=== PATIENT | female | born 1985 | race Caucasian/White ===

== ENCOUNTER → 2018-03-30 | Outpatient (CLI) | payer MEDICAID ==
--- NOTE | 2018-03-30 14:07 | RADIOLOGY REPORT (SQ) ---
EXAM DESCRIPTION: CT ABD/PELVIS WITH IV ORAL COMPLETED DATE/TIME: 03/30/2018 1:43 pm REASON FOR STUDY: R10.9 UNSPECIFIED ABDOMINAL PAIN R10.9 UNSPECIFIED ABDOMINAL PAIN COMPARISON: None. TECHNIQUE: CT scan of the abdomen and pelvis performed using helical scanning technique with dynamic intravenous contrast injection. Patient drank oral contrast. Images reviewed with lung, soft tissue , and bone windows. Reconstructed coronal and sagittal MPR images reviewed. Delayed images for evalua tion of the urinary system also acquired. All images stored on PACS. All CT scanners at this facility use dose modulation, iterative reconstruction, and/or weight based d osing when appropriate to reduce radiation dose to as low as reasonably achievable (ALARA). [facility]: Dose Right [facility]: CareDose [facility]: Dose Right [facility]: Teradose 4D [facility]: Parenting[employer]former CONTRAST TYPE AND DOSE: contrast/concentration: Isovue 350.00 mg/ml; Total Contrast Delivered: 42.0 ml; Total Saline Delivered: 65.0 ml RENAL FUNCTION: Creatinine 0.7 RADIATION DOSE: CT Rad equipment meets quality standard of care and radiation dose reduction techniq ues were employed. CTDIvol: 2.5 - 3.0 mGy. DLP: 220 mGy-cm.. LIMITATIONS: None. FINDINGS: LOWER CHEST: No significant findings. No nodules or infiltrates. Yanez rods over the thoracic and lumbar spine LIVER: Normal size. No masses. No dilated ducts. SPLEEN: Normal size. No focal lesions. PANCREAS: No masses. No significant calcifications. No adjacent inflammation or peripancreatic fluid collections. Pancreatic duct not dilated. GALLBLADDER: Surgically absent ADRENAL GLANDS: No significant masses or asymmetry. RIGHT KIDNEY AND URETER: No solid masses. No significant calcifications. No hydronephrosis or hyd roureter. LEFT KIDNEY AND URETER: No solid masses. No significant calcifications. No hydronephrosis or hydr oureter. AORTA AND VESSELS: No aneurysm. No dissection. Renal arteries, SMA, celiac without stenosis. RETROPERITONEUM: No retroperitoneal adenopathy, hemorrhage or masses. BOWEL AND PERITONEAL CAVITY: Patient drank oral contrast. No bowel obstruction. No masses or inflam matory changes. No free fluid or peritoneal masses. APPENDIX: Normal. PELVIS: No mass. No free fluid. Normal bladder. Normal size female pelvic organs ABDOMINAL WALL: No masses. No hernias. BONES: Bilateral L5 spondylolysis. Yanez rods over the thoracic and lumbar spine. OTHER: No other significant finding. IMPRESSION: NO SIGNIFICANT OR ACUTE FINDING IN THE ABDOMEN OR PELVIS ON CT SCAN WITH IV CONTRAST. TECHNICAL DOCUMENTATION: JOB ID: [id number] Quality ID # [id number]: Final reports with documentation of one or more dose reduction techniques (e.g., Au tomated exposure control, adjustment of the mA and/or kV according to patient size, use of iterative reconstruction technique) 2010 [employer]- All Rights Reserved Reading location - IP/workstation name: [email or web address]
== END ==
LOC: RAD 14:37
PROVIDERS: ATTEND Physician Assistant
DX: R10.9 Unspecified abdominal pain (principal)
CPT/HCPCS: 74177; 82565

== ENCOUNTER 2018-08-23 12:54 | Emergency (ER) | payer MEDICAID ==
[2018-08-23] MEDS ORDERED: HYDROCODONE/ACETAMINOPHEN 5-325 MG TABLET PO ONE (13:48)
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
--- NOTE | 2018-08-23 14:24 | RADIOLOGY REPORT (SQ) ---
EXAM DESCRIPTION: CHEST 2 VIEWS COMPLETED DATE/TIME: 08/23/2018 2:10 pm REASON FOR STUDY: hx of osteng imperfecta with chest/back pain COMPARISON: None. EXAM PARAMETERS: NUMBER OF VIEWS: two views TECHNIQUE: Digital Frontal and Lateral radiographic views of the chest acquired. RADIATION DOSE: NA LIMITATIONS: none FINDINGS: LUNGS AND PLEURA: No opacities, masses or pneumothorax. No pleural effusion. MEDIASTINUM AND HILAR STRUCTURES: No masses or contour abnormalities. HEART AND VASCULAR STRUCTURES: Heart normal size. No evidence for failure. BONES: No acute findings. Scoliosis. Pectus excavatum. HARDWARE: Spinal hardware. Clips in the upper abdomen. OTHER: No other significant finding. IMPRESSION: NO ACUTE RADIOGRAPHIC FINDING IN THE CHEST. TECHNICAL DOCUMENTATION: JOB ID: [id number] [employer]- All Rights Reserved Reading location - IP/workstation name: [email or web address]
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
[2018-08-23 15:14] VITALS: BP 132/75
== END 2018-08-23 15:15 | disposition home or self-care (01) ==
LOC: ER 12:54
DX: J06.9 Acute upper respiratory infection, unspecified (principal); M54.6 Pain in thoracic spine; R07.81 Pleurodynia; M54.9 Dorsalgia, unspecified; R06.02 Shortness of breath; R07.9 Chest pain, unspecified; R05 Cough; R09.81 Nasal congestion; F17.210 Nicotine dependence, cigarettes, uncomplicated
CPT/HCPCS: 71046; 99283; 99406

== ENCOUNTER 2019-03-05 01:02 | Emergency (ER) | payer MEDICAID ==
[2019-03-05] MEDS ORDERED: METHOCARBAMOL 500 MG TABLET PO ONE (02:33)
[2019-03-05] MEDS ORDERED: HYDROCODONE/ACETAMINOPHEN 5-325 MG TABLET PO ONE (02:33)
[2019-03-05] MEDS ORDERED: IBUPROFEN SUSP 100 MG/5 ML ORAL SYRINGE PO ONE (02:34)
--- NOTE | 2019-03-05 02:39 | ER Document Report ---
ED General - General Chief Complaint: Back Injury Stated Complaint: BACK INJURY Time Seen by Provider: 03/05/19 02:15 Primary Care Provider: ANALISA LOZA MD [Primary Care Provider] - Follow up as needed Mode of Arrival: Ambulatory Information source: Patient TRAVEL OUTSIDE OF THE [place] IN LAST 30 DAYS: No - HPI Notes: Patient is a 33-year-old female presents to the emergency department with history of osteogenesis imperfecta and history of spinal nikolay surgery for scoliosis at age 14 and again at age 16, presents with report that she was drinking wine and then was dancing then slipped and fell on her gluteal region and presents with significant pain to the sacral region as well as some pain through the rest of her spine. She denies any numbness, paresthesia, incontinence, abdominal pain, chest pain, significant head injury, headache, neck pain. No other musculoskeletal complaint or injury. - Related Data Allergies/Adverse Reactions: Sulfa (Sulfonamide Antibiotics) Allergy (Verified 03/05/19 01:04) Past Medical History - General Information source: Patient - Social History Smoking Status: Never Smoker Frequency of alcohol use: Occasional Drug Abuse: None Lives with: Friend Family History: None Renal/ Medical History: Denies: Hx Peritoneal Dialysis Musculoskeletal Medical History: Reports Hx Arthritis, Reports Hx Musculoskeletal Deformity - Scoliosis, pectus excavatum Psychiatric Medical History: Reports: Hx Anxiety, Hx Depression Past Surgical History: Reports: Hx Orthopedic Surgery - Immunizations Immunizations up to date: Yes Hx Diphtheria, Pertussis, Tetanus Vaccination: Yes Review of Systems - Review of Systems -: Yes All other systems reviewed and negative Physical Exam - Vital signs Vitals: Temp Pulse Resp BP Pulse Ox 98.3 F 103 H 20 134/93 H 100 03/05/19 01:09 03/05/19 01:09 03/05/19 01:09 03/05/19 01:09 03/05/19 01:09 - Notes Notes: PHYSICAL EXAMINATION: GENERAL: Well-appearing, well-nourished, in tears in pain. HEAD: Atraumatic, normocephalic. EYES: Pupils equal round and reactive to light, extraocular movements intact, conjunctiva are normal. ENT: Nares patent, oropharynx clear without exudates. Moist mucous membranes. NECK: Normal range of motion, supple without lymphadenopathy LUNGS: Breath sounds clear to auscultation bilaterally and equal. No wheezes rales or rhonchi. HEART: Regular rate and rhythm without murmurs ABDOMEN: Soft, nontender, nondistended abdomen. No guarding, no rebound. No masses appreciated. Female : deferred Musculoskeletal: no pitting or edema. No cyanosis. Mild diffuse tenderness through the thoracic and lumbar spine region along the surgical scar from previous spinal surgery, although the main pain is along L5 region through the sacrum right slightly greater than left. No gross bony deformity or contusion noted. NEUROLOGICAL: Cranial nerves grossly intact. Normal speech. Normal sensory, motor exams. No saddle anesthesia. PSYCH: Normal mood, normal affect. SKIN: Warm, Dry, normal turgor, no rashes or lesions noted. Course - Re-evaluation Re-evalutation: 03/05/19 02:45 Patient was given medication for pain with ibuprofen, Robaxin and [place]. 03/05/19 06:42 X-rays raised question of a worsening anterolisthesis L5 on S1, so a CT scan was ordered which showed this was chronic and unchanged. The patient shows no evidence for cauda equina syndrome or spinal cord contusion clinically. The patient was able to ambulate after medications felt better. No suggestion for acute fracture or neurovascular compromise. - Vital Signs Vital signs: Temp Pulse Resp BP Pulse Ox 98.3 F 103 H 20 134/93 H 100 03/05/19 01:09 03/05/19 01:09 03/05/19 01:09 03/05/19 01:09 03/05/19 01:09 Discharge - Discharge Clinical Impression: Accidental fall Qualifiers: Encounter type: initial encounter Qualified Code(s): W19.XXXA - Unspecified fall, initial encounter Back strain Qualifiers: Encounter type: initial encounter Qualified Code(s): S39.012A - Strain of muscle, fascia and tendon of lower back, initial encounter Condition: Stable Disposition: HOME, SELF-CARE Instructions: Low Back Pain ([facility]) Prescriptions: Hydrocodone/Acetaminophen [[place] 5-325 mg Tablet] 1 tab PO Q4HP PRN #20 tablet PRN Reason: Methocarbamol [Robaxin 500 mg Tablet] 500 mg PO Q8HP PRN #20 tablet PRN Reason: Forms: Return to Work Referrals: ANALISA LOZA MD [Primary Care Provider] - Follow up as needed
--- NOTE | 2019-03-05 03:43 | RADIOLOGY REPORT (SQ) ---
EXAM DESCRIPTION: XR THORACIC SPINE 2 VIEWS, XR LUMBAR SPINE ANTEROPOSTERIOR, LATERAL, AND OBLIQUES COMPLETED DATE/TME: 03/05/2019 02:28 (accession [id number]), 03/05/2019 02:29 (accession [id number]) CLINICAL HISTORY: 33 years Female, fall with pain, hx rods COMPARISON: CT abdomen pelvis March 30, 2018. Findings: Grade 1, estimated 0.8 cm (0.3-cm, prior CT 03/30/18) L5 anterolisthesis with spondylolysis bilaterally consistent with CT from March 30, 2018. Apparent interval worsening. Mild posterior L5 vertebral height loss, chronic. Moderate scoliotic curvature, moderate dextroconvexity of the lower thoracic spine, moderate levo convexity of the lumbar spine, extensive nikolay fixation posteriorly of the thoracolumbar spine extends from the T3 level to the L2-L3 level. No gross evidence of metal fracture or loosening. Right upper abdominal clips. IMPRESSION: Grade 1, 0.8 cm L5 anterolisthesis with mild interval worsening. Extensive hardware fixation of the thoracolumbar spine. Chronic grade 1 L5 anterolisthesis. .
--- NOTE | 2019-03-05 03:43 | RADIOLOGY REPORT (SQ) ---
EXAM DESCRIPTION: XR THORACIC SPINE 2 VIEWS, XR LUMBAR SPINE ANTEROPOSTERIOR, LATERAL, AND OBLIQUES COMPLETED DATE/TME: 03/05/2019 02:28 (accession [id number]), 03/05/2019 02:29 (accession [id number]) CLINICAL HISTORY: 33 years Female, fall with pain, hx rods COMPARISON: CT abdomen pelvis March 30, 2018. Findings: Grade 1, estimated 0.8 cm (0.3-cm, prior CT 03/30/18) L5 anterolisthesis with spondylolysis bilaterally consistent with CT from March 30, 2018. Apparent interval worsening. Mild posterior L5 vertebral height loss, chronic. Moderate scoliotic curvature, moderate dextroconvexity of the lower thoracic spine, moderate levo convexity of the lumbar spine, extensive nikolay fixation posteriorly of the thoracolumbar spine extends from the T3 level to the L2-L3 level. No gross evidence of metal fracture or loosening. Right upper abdominal clips. IMPRESSION: Grade 1, 0.8 cm L5 anterolisthesis with mild interval worsening. Extensive hardware fixation of the thoracolumbar spine. Chronic grade 1 L5 anterolisthesis. .
--- NOTE | 2019-03-05 03:52 | RADIOLOGY REPORT (SQ) ---
EXAM DESCRIPTION: XR PELVIS 1-2 VIEWS COMPLETED DATE/TME: 03/05/2019 02:30 CLINICAL HISTORY: 33 years, Female, s/p fall with pain, hx osteogenesis imperfecta COMPARISON: CT dated 03/30/2018 NUMBER OF VIEWS: One TECHNIQUE: AP view of the pelvis LIMITATIONS: None. FINDINGS: No definite acute fracture or dislocation. The hip and sacroiliac joints appear intact. There is levoscoliosis of the lower lumbar spine with spinal hardware partially visualized. IMPRESSION: No definite acute fracture or dislocation copyright 2010 [employer]- All Rights Reserved
--- NOTE | 2019-03-05 06:01 | RADIOLOGY REPORT (SQ) ---
EXAM DESCRIPTION: CT LUMBAR SPINE WITHOUT IV CONTRAST COMPLETED DATE/TME: 03/05/2019 04:14 CLINICAL HISTORY: 33 years, Female, fall with pain over L5 / sacrum COMPARISON: None. TECHNIQUE: Axial CT images of the lumbar spine were obtained without contrast. Sagittal and coronal reformats were performed. DLP 365 Images stored on PACS. All CT scanners at this facility use dose modulation, iterative reconstruction, and/or weight based dosing when appropriate to reduce radiation dose to as low as reasonably achievable (ALARA). [facility]: Dose Right [facility]: CareDose [facility]: Dose Right [facility]: Teradose 4D [facility]: [employer] LIMITATIONS: None. FINDINGS: There is levoscoliosis of the lumbar spine with the apex centered at L1. There is no acute fracture or subluxation. The vertebral heights are maintained. There are changes of posterior fusion which are partially visualized which extends from L2 to the upper thoracic spine. There are chronic bilateral L5 pars defects with mild grade 1 anterolisthesis of L5 over S1. The paravertebral soft tissues are normal. IMPRESSION: No acute fracture or subluxation. TECHNICAL DOCUMENTATION: Quality ID # [id number]: Final reports with documentation of one or more dose reduction techniques (e.g., Automated exposure control, adjustment of the mA and/or kV according to patient size, use of iterative reconstruction technique) copyright 2011 [employer]- All Rights Reserved
--- NOTE | 2019-03-05 06:05 | RADIOLOGY REPORT (SQ) ---
EXAM DESCRIPTION: CT PELVIS WITHOUT IV CONTRAST COMPLETED DATE/TME: 03/05/2019 04:14 CLINICAL HISTORY: 33 years, Female, fall with pain over L5 / sacrum COMPARISON: None. TECHNIQUE: Axial CT images of the pelvis were obtained without contrast. Sagittal and coronal reformats were performed. DLP 156 Images stored on PACS. All CT scanners at this facility use dose modulation, iterative reconstruction, and/or weight based dosing when appropriate to reduce radiation dose to as low as reasonably achievable (ALARA). [facility]: Dose Right [facility]: CareDose [facility]: Dose Right [facility]: Teradose 4D [facility]: IguanaFix LIMITATIONS: None. FINDINGS: There is no acute fracture or dislocation. There are chronic bilateral L5 pars defects with mild grade 1 anterolisthesis of L5 over S1. The visualized portions of the bowel appear unremarkable. The uterus and urinary bladder appear unremarkable. A menstrual cup is noted. No large soft tissue swelling. No joint effusion is detected. The hip and sacroiliac joints appear intact. IMPRESSION: No acute fracture or dislocation. TECHNICAL DOCUMENTATION: Quality ID # 436: Final reports with documentation of one or more dose reduction techniques (e.g., Automated exposure control, adjustment of the mA and/or kV according to patient size, use of iterative reconstruction technique) copyright 2010 [employer]- All Rights Reserved
[2019-03-05 06:57] VITALS: BP 111/71
== END 2019-03-05 06:59 | disposition home or self-care (01) ==
LOC: ER 01:02
DX: S39.012A Strain of muscle, fascia and tendon of lower back, initial encounter (principal); W01.0XXA Fall on same level from slipping, tripping and stumbling without subsequent striking against object, initial encounter; Y93.41 Activity, dancing; Q78.0 Osteogenesis imperfecta; Z98.890 Other specified postprocedural states; Z88.2 Allergy status to sulfonamides
CPT/HCPCS: 72110; 72170; 72070; 72131; 72192; J3490 ×2; 99284

== ENCOUNTER 2019-09-17 12:54 | Emergency (ER) | payer MEDICAID ==
[2019-09-17] MEDS ORDERED: TETRACAINE HCL 0.5% OPH SOLN 4 ML OD ONE (13:28)
--- NOTE | 2019-09-17 13:29 | ER Document Report ---
ED Medical Screen (RME) - General Chief Complaint: Headache Stated Complaint: RIGHT SIDE HEAD PAIN Time Seen by Provider: 09/17/19 13:24 Primary Care Provider: ANALISA LOZA MD [Primary Care Provider] - Follow up as needed TRAVEL OUTSIDE OF THE [place] IN LAST 30 DAYS: No - HPI Notes: 09/17/19 13:28 Patient is a 33-year-old female with no significant past medical history who p resents complaining of intermittent sharp pain to her right eye causing a mild right-sided headache as well. Patient states that yesterday she saw halos, but today her vision is normal. She has not noticed any redness. She has no foreign body sensation or discharge. No fever, chest pain, shortness of breath. I have treated and performed a rapid initial assessment of this patient. A comprehensive ED assessment and evaluation of the patient, analysis of test results and completion of medical decision making process will be conducted by additional ED providers. PHYSICAL EXAMINATION: GENERAL: Well-appearing, well-nourished and in no acute distress. A&Ox4. Answers questions appropriately. Right eye: No obvious injection or foreign body noted. No discharge. No surrounding erythema. PERRLA, EOMI bilaterally. - Related Data Allergies/Adverse Reactions: Sulfa (Sulfonamide Antibiotics) Allergy (Verified 09/17/19 13:23) Past Medical History Renal/ Medical History: Denies: Hx Peritoneal Dialysis Musculoskeltal Medical History: Reports Hx Arthritis, Reports Hx Musculoskeletal Deformity - Scoliosis, pectus excavatum Psychiatric Medical History: Reports: Hx Anxiety, Hx Depression Past Surgical History: Reports: Hx Orthopedic Surgery - Immunizations Immunizations up to date: Yes Hx Diphtheria, Pertussis, Tetanus Vaccination: Yes Physical Exam - Vital signs Vitals: Temp Pulse Resp BP Pulse Ox 98.2 F 82 16 119/70 99 09/17/19 12:59 09/17/19 12:59 09/17/19 12:59 09/17/19 12:59 09/17/19 12:59 Course - Vital Signs Vital signs: Temp Pulse Resp BP Pulse Ox 98.2 F 82 16 119/70 99 09/17/19 12:59 09/17/19 12:59 09/17/19 12:59 09/17/19 12:59 09/17/19 12:59 Doctor's Discharge - Discharge Referrals: ANALISA LOZA MD [Primary Care Provider] - Follow up as needed
--- NOTE | 2019-09-17 17:14 | ER Document Report ---
ED General - General Chief Complaint: Eye Pain Stated Complaint: RIGHT SIDE HEAD PAIN Time Seen by Provider: 09/17/19 13:24 Primary Care Provider: ANALISA LOZA MD [Primary Care Provider] - Follow up as needed Notes: 33-year-old female presents with right eye pain since yesterday. Patient states it radiates into her right sikhism. Patient has associated foreign body sensation. Patient denies any recent injuries. Patient also states she was seeing halos yesterday when she was driving home at night. Patient also states her right eye feels slightly blurred. Patient does wear glasses. 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 TRAVEL OUTSIDE OF THE [place] IN LAST 30 DAYS: No - Related Data Allergies/Adverse Reactions: Sulfa (Sulfonamide Antibiotics) Allergy (Verified 09/17/19 13:23) Past Medical History - Social History Smoking Status: Current Every Day Smoker Chew tobacco use (# tins/day): No Frequency of alcohol use: None Family History: None Patient has suicidal ideation: No Patient has homicidal ideation: No Renal/ Medical History: Denies: Hx Peritoneal Dialysis Musculoskeletal Medical History: Reports Hx Arthritis, Reports Hx Musculoskeletal Deformity - Scoliosis, pectus excavatum Psychiatric Medical History: Reports: Hx Anxiety, Hx Depression Past Surgical History: Reports: Hx Orthopedic Surgery - Immunizations Immunizations up to date: Yes Hx Diphtheria, Pertussis, Tetanus Vaccination: Yes Review of Systems - Review of Systems Notes: Constitutional: Negative for fever. HENT: Negative for sore throat. Eyes: Positive for right eye pain and blurred vision. Cardiovascular: Negative for chest pain. Respiratory: Negative for shortness of breath. Gastrointestinal: Negative for abdominal pain, vomiting or diarrhea. Genitourinary: Negative for dysuria. Musculoskeletal: Negative for back pain. Skin: Negative for rash. Neurological: Negative for headaches, weakness or numbness. 10 point ROS negative except as marked above and in HPI. Physical Exam - Vital signs Vitals: Temp Pulse Resp BP Pulse Ox 98.2 F 82 16 119/70 99 09/17/19 12:59 09/17/19 12:59 09/17/19 12:59 09/17/19 12:59 09/17/19 12:59 - Notes Notes: GENERAL: Well-appearing, well-nourished and in no acute distress. HEAD: Atraumatic, normocephalic. EYES: Pupils equal round and reactive to light, extraocular movements intact, sclera anicteric, conjunctiva are normal. Fluorescein exam reveals no corneal abrasion, no corneal ulcers, no dendrites. NECK: Normal range of motion, supple without lymphadenopathy or JVD. EXTREMITIES: Normal range of motion, no pitting or edema. No clubbing or cyanosis. NEUROLOGICAL: Cranial nerves II through XII grossly intact. Normal speech, normal gait. PSYCH: Normal mood, normal affect. SKIN: Warm, Dry, normal turgor, no rashes or lesions noted. - HEENT Visual acuity- Right eye: 20/15 Visual acuity- Left eye: 20/15 Visual acuity- Both eyes: 20/15 Corrective lenses worn: Yes - glasses Course - Re-evaluation Re-evalutation: 09/17/19 33 y/o female presents for right eye foreign body sensation and blurred vision since yesterday. Patient denies any injury. Patient's corrected visual acuity is 20/15 in right eye, 20/15 in left eye, and 20/15 in both eyes. Fluorescein exam reveals no corneal abrasion, no corneal ulcers, or no dendrites. CT head was ordered due to headache radiating to right sikhism. 09/17/19 17:41 CT head negative. Pt given close follow up with bookmobile driver in 2 to 3 days. Patient given strict return precautions. All questions/concerns addressed prior to discharge. - Vital Signs Vital signs: Temp Pulse Resp BP Pulse Ox 98.2 F 82 16 119/70 99 09/17/19 12:59 09/17/19 12:59 09/17/19 12:59 09/17/19 12:59 09/17/19 12:59 Discharge - Discharge Clinical Impression: Pain, eye, right Condition: Stable Disposition: HOME, SELF-CARE Additional Instructions: Your CT head was normal. Your eye exam was unremarkable. Please follow up with eye doctor, Dr. Saida Reis, in 2-3 days. Return immediately to ER for any worsening symptoms, including worsening blurred vision, redness to eye, increased eye pain, increased headache, confusion, nausea/vomiting, passing out, feeling like you're going to pass out, fever, neck pain/stiffness, or any other symptoms that are concerning to you. Forms: Return to Work Referrals: ANALISA LOZA MD [Primary Care Provider] - Follow up in 3-5 days SAIDA REIS MD [ACTIVE STAFF] - Follow up in 3-5 days
--- NOTE | 2019-09-17 17:22 | RADIOLOGY REPORT (SQ) ---
EXAM DESCRIPTION: CT HEAD WITHOUT COMPLETED DATE/TIME: 09/17/2019 4:59 pm REASON FOR STUDY: right sided headache COMPARISON: None. TECHNIQUE: Axial images acquired through the brain without intravenous contrast. Images reviewed wi th bone, brain and subdural windows. Additional sagittal and coronal reconstructions were generated. Images stored on PACS. All CT scanners at this facility use dose modulation, iterative reconstruction, and/or weight based d osing when appropriate to reduce radiation dose to as low as reasonably achievable (ALARA). [facility]: Dose Right [facility]: CareDose [facility]: Dose Right [facility]: Teradose 4D [facility]: Smart [employer] RADIATION DOSE: CT Rad equipment meets quality standard of care and radiation dose reduction techniq ues were employed. CTDIvol: 53.2 mGy. DLP: 911 mGy-cm. mGy. LIMITATIONS: None. FINDINGS: VENTRICLES: Normal size and contour. CEREBRUM: No masses. No hemorrhage. No midline shift. No evidence for acute infarction. Normal gra y/white matter differentiation. No areas of low density in the white matter. CEREBELLUM: No masses. No hemorrhage. No alteration of density. No evidence for acute infarction. EXTRAAXIAL SPACES: No fluid collections. No masses. ORBITS AND GLOBE: No intra- or extraconal masses. Normal contour of globe without masses. CALVARIUM: No fracture. PARANASAL SINUSES: No fluid or mucosal thickening. SOFT TISSUES: No mass or hematoma. OTHER: No other significant finding. IMPRESSION: NORMAL BRAIN CT WITHOUT CONTRAST. EVIDENCE OF ACUTE STROKE: NO. COMMENT: Quality ID # 436: Final reports with documentation of one or more dose reduction techniques (e.g., Automated exposure control, adjustment of the mA and/or kV according to patient size, use of iterative reconstruction technique) TECHNICAL DOCUMENTATION: JOB ID: [id number] 2010 .[employer]- All Rights Reserved Reading location - IP/workstation name: [email or web address]
[2019-09-17 17:45] VITALS: BP 107/70
[2019-09-17] MEDS ORDERED: KETOROLAC TROMETHAMINE 60 MG/2 ML SDV IM ONE (17:46)
== END 2019-09-17 18:15 | disposition home or self-care (01) ==
LOC: ER 12:54
DX: H57.11 Ocular pain, right eye (principal); H53.8 Other visual disturbances; R51 Headache; F17.200 Nicotine dependence, unspecified, uncomplicated
CPT/HCPCS: 99284; 96372; 81025; 70450; J1885; J3490